=== PATIENT | male | born 1965 | race African-American/Black ===

== ENCOUNTER 2017-04-27 20:59 | Emergency (ER) | payer MEDICARE, MEDICAID ==
[~2017-04-27] VITALS: Ht 162.6 cm; Wt 82.0 kg
[2017-04-27] MEDS ORDERED: DIPHENHYDRAMINE 50MG/ML VIAL IV ONE (21:15)
[2017-04-27] MEDS ORDERED: EPINEPHRINE 1:1000 1 MG/ML AMP INJ ONE (21:15)
[2017-04-27] MEDS ORDERED: METHYLPREDNISOLONE SOD SUCC 125 MG/2 ML VIAL IV ONE (21:15)
[2017-04-28 01:15] VITALS: BP 126/89
== END 2017-04-28 01:16 | disposition home or self-care (01) ==
LOC: ER 21:39
DX: T78.2XXA Anaphylactic shock, unspecified, initial encounter (principal); J45.909 Unspecified asthma, uncomplicated; F12.10 Cannabis abuse, uncomplicated; Z88.0 Allergy status to penicillin
CPT/HCPCS: 96372; 96374; 96375; 99291; J0171; J1200; J2930